=== PATIENT | male | born 1990 | race Caucasian/White ===

== ENCOUNTER 2017-05-06 21:26 | Emergency (ER) | payer SELFPAY | END 2017-05-06 22:02 | disposition home or self-care (01) | LOC: D.ER 21:26 | DX: K04.7 Periapical abscess without sinus (principal); K08.89 Other specified disorders of teeth and supporting structures; F17.200 Nicotine dependence, unspecified, uncomplicated ==

== ENCOUNTER 2017-05-07 10:53 | Emergency (ER) | payer SELFPAY | END 2017-05-07 11:26 | disposition home or self-care (01) | LOC: D.ER 10:53 | DX: K04.7 Periapical abscess without sinus (principal); K08.89 Other specified disorders of teeth and supporting structures ==

== ENCOUNTER 2017-05-11 20:56 | Emergency (ER) | payer SELFPAY | END 2017-05-11 22:19 | disposition home or self-care (01) | LOC: D.ER 20:56 | DX: K04.7 Periapical abscess without sinus (principal); K08.89 Other specified disorders of teeth and supporting structures; F17.200 Nicotine dependence, unspecified, uncomplicated ==

== ENCOUNTER 2017-05-28 22:31 | Emergency (ER) | payer SELFPAY | END 2017-05-29 | disposition home or self-care (01) | LOC: D.ER 22:31 | DX: K08.89 Other specified disorders of teeth and supporting structures (principal); K02.9 Dental caries, unspecified ==

== ENCOUNTER 2017-12-21 11:53 | Emergency (ER) | payer SELFPAY ==
[~2017-12-21] VITALS: Ht 185.4 cm; Wt 90.9 kg
[2017-12-21 12:25] VITALS: Ht 185.4 cm; Wt 90.9 kg
[2017-12-21] MEDS ORDERED: TORADOL10 MG PO (15:52)
[2017-12-21 16:23] VITALS: BP 129/76
== END 2017-12-21 16:23 | disposition home or self-care (01) ==
LOC: D.ER 11:53
DX: S93.402A Sprain of unspecified ligament of left ankle, initial encounter (principal); X58.XXXA Exposure to other specified factors, initial encounter; Y93.89 Activity, other specified; Y92.019 Unspecified place in single-family (private) house as the place of occurrence of the external cause; F17.200 Nicotine dependence, unspecified, uncomplicated

== ENCOUNTER 2018-10-29 19:32 | Emergency (ER) | payer SELFPAY ==
[~2018-10-29] VITALS: Ht 185.4 cm; Wt 68.2 kg
[~2018-10-29 19:32] MED LIST: TORADOL10 MG PO
[2018-10-29 19:38] VITALS: Ht 185.4 cm; Wt 68.2 kg
[2018-10-29] MEDS ORDERED: ROBAXIN500 MG PO (21:33)
[2018-10-29] MEDS ORDERED: TORADOL10 MG PO (21:33)
[2018-10-29] MEDS ORDERED: CLARITIN 10 MG10 MG PO (21:35)
[2018-10-29 21:48] VITALS: BP 113/69
== END 2018-10-29 21:49 | disposition home or self-care (01) ==
LOC: D.ER 19:32
DX: M54.5 Low back pain (principal); R09.89 Other specified symptoms and signs involving the circulatory and respiratory systems